=== PATIENT | female | born 1990 | race Caucasian/White ===

== ENCOUNTER 2017-08-01 16:58 | Emergency (ER) | payer SELFPAY ==
[2017-08-01] MEDS ORDERED: ACETAMINOPHEN 325 MG TABLET PO ONE (17:16)
[2017-08-01] MEDS ORDERED: CEFTRIAXONE 1 GM/D5W RTU 1 GM/50 ML RTUPB IV ONE (17:51)
[2017-08-01] MEDS ORDERED: NORMAL SALINE 1000 ML 1,000 ML IV ONE (17:56)
[2017-08-01] MEDS ORDERED: KETOROLAC TROMETHAMINE INJ/PF 30 MG/1 ML SDV IV ONE (17:56)
--- NOTE | 2017-08-01 17:59 | ER Document Report ---
ED General - General Chief Complaint: Flank Pain Stated Complaint: BACK PAIN Time Seen by Provider: 08/01/17 17:56 Mode of Arrival: Ambulatory Information source: Patient Notes: 26-year-old female history of kidney infections in the past presents with complaints of right flank pain associated with fever nausea vomiting. She notes symptoms started intermittently over the past few days worsened today. Patient has had no history of kidney stones TRAVEL OUTSIDE OF THE [place] IN LAST 30 DAYS: No - HPI Onset: Other - 3-4 day duration Onset/Duration: Intermittent Quality of pain: Burning, Cramping Severity: Mild Pain Level: 2 Associated symptoms: Fever, Nausea, Vomiting Exacerbated by: Denies Relieved by: Denies Similar symptoms previously: Yes Recently seen / treated by doctor: Yes - Related Data Allergies/Adverse Reactions: No Known Allergies Allergy (Verified 08/01/17 17:53) Past Medical History - Social History Smoking Status: Never Smoker Cigarette use (# per day): No Chew tobacco use (# tins/day): No Smoking Education Provided: No Frequency of alcohol use: None Drug Abuse: None Family History: Reviewed & Not Pertinent Neurological Medical History: Reports: Hx Migraine, Hx Seizures Renal/ Medical History: Denies: Hx Peritoneal Dialysis Psychiatric Medical History: Reports: Hx Anxiety, Hx Attention Deficit Hyperactivity Disorder, Hx Depression Surgical Hx: Negative - Immunizations Hx Diphtheria, Pertussis, Tetanus Vaccination: Yes Review of Systems - Review of Systems Notes: REVIEW OF SYSTEMS: CONSTITUTIONAL :fever EENT: Denies eye, ear, throat, or mouth pain or symptoms. Denies nasal or sinus congestion or discharge. Denies throat, tongue, or mouth swelling or difficulty swallowing. CARDIOVASCULAR: Denies chest pain. Denies palpitations or racing or irregular heart beat. Denies ankle edema. RESPIRATORY: Denies cough, cold, or chest congestion. Denies shortness of breath, difficulty breathing, or wheezing. GASTROINTESTINAL: D admits nausea vomiting flank pain GENITOURINARY: Denies difficulty urinating, painful urination, burning, frequency, blood in urine, or discharge. FEMALE GENITOURINARY: Denies vaginal bleeding, heavy or abnormal periods, irregular periods. Denies vaginal discharge or odor. MUSCULOSKELETAL: Denies back or neck pain or stiffness. Denies joint pain or swelling. SKIN: Denies rash, lesions or sores. HEMATOLOGIC : Denies easy bruising or bleeding. LYMPHATIC: Denies swollen, enlarged glands. NEUROLOGICAL: Denies confusion or altered mental status. Denies passing out or loss of consciousness. Denies dizziness or lightheadedness. Denies headache. Denies weakness or paralysis or loss of use of either side. Denies problems with gait or speech. Denies sensory loss, numbness, or tingling. Denies seizures. PSYCHIATRIC: Denies anxiety or stress. Denies depression, suicidal ideation, or homicidal ideation. ALL OTHER SYSTEMS REVIEWED AND NEGATIVE. PHYSICAL EXAMINATION: GENERAL: Well-appearing, well-nourished and in no acute distress. febrile HEAD: Atraumatic, normocephalic. EYES: Pupils equal round and reactive to light, extraocular movements intact, conjunctiva are normal. ENT: Nares patent, oropharynx clear without exudates. Moist mucous membranes. NECK: Normal range of motion, supple without lymphadenopathy LUNGS: Breath sounds clear to auscultation bilaterally and equal. No wheezes rales or rhonchi. HEART: Regular rate and rhythm without murmurs ABDOMEN: Soft, nontender, nondistended abdomen. No guarding, no rebound. No masses appreciated. right cva tenderness Female : deferred Musculoskeletal: Normal range of motion, no pitting or edema. No cyanosis. NEUROLOGICAL: Cranial nerves grossly intact. Normal speech, normal gait. Normal sensory, motor exams PSYCH: Normal mood, normal affect. SKIN: Warm, Dry, normal turgor, no rashes or lesions noted. Dictation was performed using [employer] voice recognition software Physical Exam - Vital signs Vitals: Temp Pulse Resp BP Pulse Ox 102.5 F H 106 H 16 108/67 99 08/01/17 17:05 08/01/17 17:05 08/01/17 17:05 08/01/17 17:05 08/01/17 17:05 Course - Re-evaluation Re-evalutation: 08/01/17 17:59 Patient noted to be febrile with flank pain probable pyelonephritis labwork pending 08/01/17 20:34 Patient's urinalysis is consistent with pyelonephritis, there is no elevation of white count, her CMP did hemolyze patient wishes to be discharged prior to redraw. I will treated with antibiotics she is otherwise well-appearing no distress. Her fever was rechecked and noted to be 102.3 but her heart rate had improved after IV fluids and pain control. She will be discharged home with pain medication antibiotics urine culture ordered very strict return precautions provided 08/01/17 20:34 After performing a Medical Screening Examination, I estimate there is LOW risk for ACUTE APPENDICITIS, BOWEL OBSTRUCTION, ACUTE CHOLECYSTITIS, PERFORATED DIVERTICULITIS, INCARCERATED HERNIA, PANCREATITIS, PELVIC INFLAMMATORY DISEASE, PERFORATED ULCER, ECTOPIC , or TUBO-OVARIAN ABSCESS, thus I consider the discharge disposition reasonable. Also, there is no evidence or peritonitis , sepsis, or toxicity. I have reevaluated this patient multiple times and no significant life threatening changes are noted. The patient and I have discussed the diagnosis and risks, and we agree with discharging home with close follow-up with the understanding that symptoms and presentations can change. We also discussed returning to the Emergency Department immediately if new or worsening symptoms occur. We have discussed the symptoms which are most concerning (e.g., bloody stool, fever, changing or worsening pain, vomiting) that necessitate immediate return. - Vital Signs Vital signs: Temp Pulse Resp BP Pulse Ox 102.3 F H 100 16 110/68 100 08/01/17 19:00 08/01/17 19:00 08/01/17 19:00 08/01/17 19:00 08/01/17 19:00 - Laboratory Result Diagrams: 08/01/17 18:25 08/01/17 18:25 Laboratory results interpreted by me: 08/01/17 08/01/17 18:14 18:25 MCV 78 L MCH 25.9 L Urine Protein 30 H Urine Nitrite POSITIVE H Ur Leukocyte Esterase LARGE H Discharge - Discharge Clinical Impression: Pyelonephritis Fever Qualifiers: Fever type: unspecified Qualified Code(s): R50.9 - Fever, unspecified Condition: Stable Disposition: HOME, SELF-CARE Instructions: Pyelonephritis ([facility]) Additional Instructions: Follow up with your physician tomorrow for further care or return to the ED IMMEDIATELY if symptoms worsen or new concerns occur. If you cannot afford to follow up with your primary care physician a list of low cost clinics have been provided at the end of your discharge papers as well. Prescriptions: Ciprofloxacin HCl [Cipro 500 mg Tablet] 500 mg PO BID #20 tablet Hydrocodone/Acetaminophen [[place] 5-325 mg Tablet] 1 tab PO Q6 #14 tablet
[2017-08-01 18:39] LABS: ABSOLUTE BASOPHILS # (AUTO) 0.1 10^3/uL (0.0-0.2); ABSOLUTE EOSINOPHILS # (AUTO) 0.1 10^3/uL (0.0-0.6); ABSOLUTE LYMPHOCYTES (AUTO) 1.3 10^3/uL (0.5-4.7); ABSOLUTE MONOCYTES (AUTO) 0.8 10^3/uL (0.1-1.4); ABSOLUTE NEUT (AUTO) 7.9 10^3/uL (1.7-8.2); BASOPHILS % (AUTO) 0.7 % (0-2); EOSINOPHILS % (AUTO) 0.6 % (0-6); MEAN CORPUSCULAR HEMOGLOBIN 25.9 pg (27.0-33.4); MEAN CORPUSCULAR HGB CONC 33.4 g/dL (32.0-36.0); MEAN CORPUSCULAR VOLUME 78 fl (80-97); MONOCYTES % (AUTO) 8.2 % (3-13); RED BLOOD COUNT 4.65 10^6/uL (3.72-5.28); RED CELL DISTRIBUTION WIDTH 13.6 % (11.5-14.0); SEGMENTED NEUTROPHILS % (AUTO) 77.5 % (42-78); WHITE BLOOD COUNT 10.2 10^3/uL (4.0-10.5)
[2017-08-01 18:55] LABS: APPEARANCE,URINE CLOUDY; BILIRUBIN,URINE NEGATIVE (NEGATIVE); GLUCOSE, URINE NEGATIVE (NEGATIVE); KETONES,URINE NEGATIVE (NEGATIVE); LEUKOCYTE ESTERASE,URINE LARGE (NEGATIVE); NITRITE,URINE POSITIVE (NEGATIVE); PROTEIN,URINE 30 mg/dL (NEGATIVE); URINE SPECIFIC GRAVITY 1.008; UROBILINOGEN,URINE NEGATIVE mg/dL (<2.0)
[2017-08-01 19:50] VITALS: BP 110/68
== END 2017-08-01 19:00 | disposition home or self-care (01) ==
LOC: ER 16:58
DX: N12 Tubulo-interstitial nephritis, not specified as acute or chronic (principal); R50.9 Fever, unspecified; R10.9 Unspecified abdominal pain; R11.2 Nausea with vomiting, unspecified
CPT/HCPCS: 99284; 96375; 96365; 36415; 87040; 87086; 85025; 81025; 87088; 81001; 87186; J1885; J7030; J0696

== ENCOUNTER 2018-02-05 21:13 | Emergency (ER) | payer SELFPAY ==
[2018-02-05 21:22] VITALS: BP 121/78
[2018-02-05] MEDS ORDERED: NAPROXEN 250 MG TABLET PO ONE (23:02)
[2018-02-05] MEDS ORDERED: DIAZEPAM INJ 10 MG/2 ML DISP.SYRIN IM ONE (23:02)
--- NOTE | 2018-02-06 00:07 | ER Document Report ---
ED General - General Chief Complaint: Back Pain Stated Complaint: RIGHT HIP AND BACK PAIN Time Seen by Provider: 02/05/18 22:56 TRAVEL OUTSIDE OF THE [place] IN LAST 30 DAYS: No - Related Data Allergies/Adverse Reactions: No Known Allergies Allergy (Verified 08/01/17 17:53) Past Medical History - Social History Smoking Status: Current Every Day Smoker Chew tobacco use (# tins/day): No Frequency of alcohol use: None Drug Abuse: None Family History: Reviewed & Not Pertinent Patient has suicidal ideation: No Patient has homicidal ideation: No Neurological Medical History: Reports: Hx Migraine, Hx Seizures Renal/ Medical History: Denies: Hx Peritoneal Dialysis Psychiatric Medical History: Reports: Hx Anxiety, Hx Attention Deficit Hyperactivity Disorder, Hx Depression - Immunizations Hx Diphtheria, Pertussis, Tetanus Vaccination: Yes Physical Exam - Vital signs Vitals: Temp Pulse Resp BP Pulse Ox 98.4 F 118 H 18 121/78 96 02/05/18 21:20 02/05/18 21:20 02/05/18 21:20 02/05/18 21:20 02/05/18 21:20 Course - Re-evaluation Re-evalutation: 02/06/18 00:07 She is up ambulating doing better. Patient was asking what her discharge medications would be. I did go over the Motrin. I also told her I wrote her for a low dose Flexeril and she is to break the tablet in half, only take half at a time. I told her to be careful if she is watching her young children that she should not be taking this medication. I told her to apply take 2-3 days for this to resolve completely. 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 I did encourage her to call friends neighbors and whoever else she can to help out at this time. - Vital Signs Vital signs: Temp Pulse Resp BP Pulse Ox 98.4 F 118 H 18 121/78 96 02/05/18 21:20 02/05/18 21:20 02/05/18 21:20 02/05/18 21:20 02/05/18 21:20 Discharge - Discharge Clinical Impression: Sciatica Condition: Stable Disposition: HOME, SELF-CARE Instructions: Low Back Pain ([facility]), Muscle Strain ([facility]) Additional Instructions: Follow up with your physician tomorrow for further care or return to the ED IMMEDIATELY if symptoms worsen or new concerns occur. If you cannot afford to follow up with your primary care physician a list of low cost clinics have been provided at the end of your discharge papers as well. Motrin 600 mg by mouth 8 hours with food for the next 3 days. Prescriptions: Cyclobenzaprine HCl [Flexeril 5 mg Tablet] 5 mg PO TID 4 Days #12 tablet
== END 2018-02-06 00:11 | disposition home or self-care (01) ==
LOC: ER 21:13
DX: M54.30 Sciatica, unspecified side (principal); M54.9 Dorsalgia, unspecified; M25.551 Pain in right hip; F17.200 Nicotine dependence, unspecified, uncomplicated
CPT/HCPCS: 99283; 96372; J3360

== ENCOUNTER 2018-06-14 11:41 | Emergency (ER) | payer SELFPAY ==
[2018-06-14] MEDS ORDERED: LIDOCAINE 2% VISCOUS SOLN 20 ML UDCUP PO ONE (12:51)
[2018-06-14] MEDS ORDERED: PENICILLIN V POTASSIUM 500 MG TABLET PO ONE (12:51)
[2018-06-14] MEDS ORDERED: IBUPROFEN 600 MG TABLET PO ONE (12:51)
--- NOTE | 2018-06-14 13:29 | ER Document Report ---
ED ENT - General Chief Complaint: Facial Swelling Stated Complaint: SINUS PAIN Time Seen by Provider: 06/14/18 12:46 Mode of Arrival: Ambulatory Information source: Patient Notes: 27-year-old female presents to ED for headache times a week. She states she has had some swelling to the her gums and face. She thought she might of had a sinus infection and her fever has gotten up to 102.5 yesterday no fevers today. She states she has not been to a doctor. She does have an abscess to her upper gums. Patient is alert and oriented speaking in full sentences respirations regular and unlabored and walks with a even steady gait. TRAVEL OUTSIDE OF THE [place] IN LAST 30 DAYS: No - HPI Patient complains to provider of: Dental problem Onset: Last week Onset/Duration: Gradual, Worse Quality of pain: Stabbing Severity: Moderate Pain Level: 4 Location of pain: Face, Tooth Associated symptoms: Dental pain, Dental caries, Fever Similar symptoms previously: Yes Recently seen / treated by doctor: No - Related Data Allergies/Adverse Reactions: No Known Allergies Allergy (Verified 06/14/18 11:42) Past Medical History - General Information source: Patient - Social History Smoking Status: Former Smoker Cigarette use (# per day): No Chew tobacco use (# tins/day): No Smoking Education Provided: No Frequency of alcohol use: None Drug Abuse: None Lives with: Family Family History: Reviewed & Not Pertinent Patient has suicidal ideation: No Patient has homicidal ideation: No - Past Medical History Cardiac Medical History: Reports: None Pulmonary Medical History: Reports: None Neurological Medical History: Reports: Hx Migraine, Hx Seizures Endocrine Medical History: Reports: None Renal/ Medical History: Reports: None Malignancy Medical History: Reports: None GI Medical History: Reports: None Musculoskeletal Medical History: Reports None Skin Medical History: Reports None Psychiatric Medical History: Reports: Hx Anxiety, Hx Attention Deficit Hyperactivity Disorder, Hx Depression Traumatic Medical History: Reports: None Infectious Medical History: Reports: None Surgical Hx: Negative Past Surgical History: Reports: None - Immunizations Immunizations up to date: Yes Hx Diphtheria, Pertussis, Tetanus Vaccination: Yes Review of Systems - Review of Systems Constitutional: No symptoms reported EENT: Mouth pain, Mouth swelling, Dental problem Cardiovascular: No symptoms reported Respiratory: No symptoms reported Gastrointestinal: No symptoms reported Genitourinary: No symptoms reported Female Genitourinary: No symptoms reported Musculoskeletal: No symptoms reported Skin: No symptoms reported Hematologic/Lymphatic: No symptoms reported Neurological/Psychological: No symptoms reported -: Yes All other systems reviewed and negative Physical Exam - Vital signs Vitals: Temp Pulse Resp BP Pulse Ox 97.9 F 82 14 113/73 100 06/14/18 11:50 06/14/18 11:50 06/14/18 11:50 06/14/18 11:50 06/14/18 11:50 Interpretation: Normal - General General appearance: Appears well, Alert - HEENT Head: Normocephalic, Atraumatic Eyes: Normal Pupils: PERRL Ears: Normal External canal: Normal Tympanic membrane: Normal Sinus: Normal Nasal: Normal Mouth/Lips: Caries Teeth diagram: 1 - Abscess with dental pain minimal facial swelling Pharynx: Normal Neck: Anterior cervical chain - Respiratory Respiratory status: No respiratory distress Chest status: Nontender Breath sounds: Normal Chest palpation: Normal - Cardiovascular Rhythm: Regular Heart sounds: Normal auscultation Murmur: No - Abdominal Inspection: Normal Distension: No distension Bowel sounds: Normal Tenderness: Nontender Organomegaly: No organomegaly - Back Back: Normal, Nontender - Extremities General upper extremity: Normal inspection, Nontender, Normal color, Normal ROM , Normal temperature General lower extremity: Normal inspection, Nontender, Normal color, Normal ROM , Normal temperature, Normal weight bearing. No: Ismael's sign - Neurological Neuro grossly intact: Yes Cognition: Normal Orientation: AAOx4 Devens Coma Scale Eye Opening: Spontaneous Dima Coma Scale Verbal: Oriented Dima Coma Scale Motor: Obeys Commands Devens Coma Scale Total: 15 Speech: Normal Motor strength normal: LUE, RUE, LLE, RLE Sensory: Normal - Psychological Associated symptoms: Normal affect, Normal mood - Skin Skin Temperature: Warm Skin Moisture: Dry Skin Color: Normal Course - Re-evaluation Re-evalutation: 06/14/18 22:49 Presentation is most consistent with likely an infected tooth. Airway is patent. Vitals within normal limits. Patient is able swallow without any difficulty. There is no significant facial swelling. No evidence of Santy angina, apical abscess, or airway obstruction. Patient will be started on antibiotics. I've instructed to follow-up with dentistry as earliest ability for definitive management. At this time will discharge with return precautions and follow-up recommendations. Verbal discharge instructions given a the bedside and opportunity for questions given. Medication warnings reviewed. Patient is in agreement with this plan and has verbalized understanding of return precautions and the need for primary care follow-up in the next 24-72 hours. - Vital Signs Vital signs: Temp Pulse Resp BP Pulse Ox 98.2 F 70 18 113/74 100 06/14/18 13:29 06/14/18 13:29 06/14/18 13:29 06/14/18 13:29 06/14/18 13:29 Discharge - Discharge Clinical Impression: Pain due to dental caries, Dental abscess Condition: Stable Disposition: HOME, SELF-CARE Additional Instructions: TOOTHACHE: Your pain is due to dental decay. The tooth must be repaired in order for you to feel better. You will, therefore, be referred to a dentist. We do not have dentists on the staff at [facility]. Severe swelling or drainage around a tooth usually means a dental abscess. This also requires evaluation and treatment by the dentist, but antibiotics may be prescribed while awaiting dental treatment. You should be rechecked immediately if you develop major swelling of the face, increasing pain, a lump in the jaw or gums, headache, difficulty swallowing, or fever. PENICILLIN V K: You have been given a prescription for Penicillin VK. Your physician has determined that this is the best antibiotic for your condition. Pen VK can be taken with meals, however more of the antibiotic gets into the bloodstream if it's taken on an empty stomach. Penicillin usually has no side effects. However, allergy to penicillins is common. If you have had an allergic reaction to any drug of the penicillin family, you should never take any other penicillin. Notify your doctor at once if you develop hives, itching, swelling, faintness, or shortness of breath. Ibuprofen Ibuprofen is an excellent, safe drug for pain control. In addition, it has potent antiinflammatory effects which are beneficial, especially in the treatment of injuries, arthritis, or tendonitis. It's best to take ibuprofen with food. Persons with ulcer disease or allergy to aspirin should notify their physician of this before taking ibuprofen. Take the medication exactly as prescribed. Don't take additional doses unless instructed to do so by your doctor. If you develop wheezing, shortness of breath, hives, faintness, stomach pain, vomiting, or dark black stools, return for re-evaluation at once. Salt and soda water gargles 1 quart of water 1 tablespoon of salt 1 teaspoon of baking soda Mixed 3 ingredients together and boil for 1 minute Placed in a covered quart jar Use 1/2 ounce of cold solution to gargle 3 times a day FOLLOW-UP CARE: You have been referred for follow-up care to the dentists listed below. Call the dentists office for an appointment as you were instructed or within the next two days. If you experience worsening or a significant change in your symptoms, notify the physician immediately or return to the Emergency Department at any time for re-evaluation. [facility] [address] [place], [place] [phone] [facility] [address] [place] [address] [facility] [address] [facility] [address] [facility] [address] [email or web address] [address] [place] [address] Thursday- 8:00am to 5:00 pm Will see patients from other city hospital. Charges based on income and family size and accepts Medicare, Medicaid, and Insurances Will pull molars [facility] [address] Hours of Operation 8:00 am - 4:30 pm weekdays The following dental offices accept Medicaid: [facility] Dr. Sot[address] Dr. Gallegos Dr. Hazel Dr. Kirby Papi Rolon Lutsavage, and Joey oral surgery Dr. Phillips ([place]) Dr. Rogers ([place]) [facility] Drs. Ambrocio ([place]) Dr. Villanueva ([place]) [facility] Dr. Carlin ([place]) Drs. Mathew and ([place]) Medicaid Care Line Prescriptions: Ibuprofen 600 mg PO Q6HP PRN #20 tablet PRN Reason: Penicillin V Potassium [Penicillin Vk 500 mg Tablet] 500 mg PO BID #20 tablet
[2018-06-14 13:30] VITALS: BP 113/74
== END 2018-06-14 14:00 | disposition home or self-care (01) ==
LOC: ER 11:41
DX: K02.9 Dental caries, unspecified (principal); K04.7 Periapical abscess without sinus; R51 Headache; R50.9 Fever, unspecified; Z87.891 Personal history of nicotine dependence
CPT/HCPCS: 99283; J3490

== ENCOUNTER 2018-12-02 12:42 | Emergency (ER) | payer SELFPAY ==
[2018-12-02] MEDS ORDERED: LIDOCAINE 2% VISCOUS SOLN 20 ML UDCUP PO ONE (14:57)
--- NOTE | 2018-12-02 15:03 | ER Document Report ---
ED Oral Problem - General Chief Complaint: Mouth Problem Stated Complaint: MOUTH PAIN/SORES,HANDS SWELLING Time Seen by Provider: 12/02/18 13:24 Mode of Arrival: Ambulatory Information source: Patient Notes: 27-year-old female presented to ED for complaint of sores to her mouth left nostril and swollen hands. She states this is been going on for 3 days. She states she went to a local doctor and they gave her antibiotics for this pain and swelling to her hands. She states this did not do any good at all. She states she is continued to have the pain in her mouth and her hands. I consu lted Dr. Stephen for her symptoms. He came and examined the patient and stated that she looked like she had mngx-agqb-mos-mouth disease. Will order patient Magic mouthwash for home and give her some viscous lidocaine in the emergency room. Patient to follow-up with a primary doctor. I have given her a list of all the local primary doctors. TRAVEL OUTSIDE OF THE [place] IN LAST 30 DAYS: No - HPI Patient complains to provider of: Other - Swelling to both hands, sores to both hands, aphthous ulcers with rash to face. Onset: Gradual Quality of pain: Burning, Sharp Severity: Severe Pain Level: 5 Associated symptoms: Other - Painful ulcers to mouth left nostril, rash to face, painful sores to hands with swelling. 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 Denies: Hx Peritoneal Dialysis Malignancy Medical History: Reports: None GI Medical History: Reports: None Musculoskeletal Medical History: Reports None Skin Medical History: Reports None Psychiatric Medical History: Reports: Hx Anxiety, Hx Attention Deficit Hyperactivity Disorder, Hx Depression Traumatic Medical History: Reports: None Infectious Medical History: Reports: None Surgical Hx: Negative Past Surgical History: Reports: None - Immunizations Immunizations up to date: Yes Hx Diphtheria, Pertussis, Tetanus Vaccination: Yes Review of Systems - Review of Systems Constitutional: No symptoms reported EENT: Nose pain, Mouth pain, Other - Rash to face Cardiovascular: No symptoms reported Respiratory: No symptoms reported Gastrointestinal: No symptoms reported Genitourinary: No symptoms reported Female Genitourinary: No symptoms reported Musculoskeletal: No symptoms reported Skin: Rash - Rash to hands and face, Other - Swelling to hands Hematologic/Lymphatic: No symptoms reported Neurological/Psychological: No symptoms reported -: Yes All other systems reviewed and negative Physical Exam - Vital signs Vitals: Temp Pulse Resp BP Pulse Ox 99.0 F 81 18 126/88 H 100 12/02/18 12:46 12/02/18 12:46 12/02/18 12:46 12/02/18 12:46 12/02/18 12:46 Interpretation: Normal - General General appearance: Appears well, Alert - HEENT Head: Normocephalic, Atraumatic Eyes: Normal Pupils: PERRL Ears: Normal External canal: Normal Tympanic membrane: Normal Nasal: Other - Also to left nostril Mouth/Lips: Lesions - aphthous ulcers to oral mucosa Pharynx: Erythema Neck: Normal - Respiratory Respiratory status: No respiratory distress Chest status: Nontender Breath sounds: Normal Chest palpation: Normal - Cardiovascular Rhythm: Regular Heart sounds: Normal auscultation Murmur: No - Abdominal Inspection: Normal Distension: No distension Bowel sounds: Normal Tenderness: Nontender Organomegaly: No organomegaly - Back Back: Normal, Nontender - Extremities General upper extremity: Normal inspection, Nontender, Normal color, Normal ROM, Normal temperature General lower extremity: Normal inspection, Nontender, Normal color, Normal ROM, Normal temperature, Normal weight bearing. No: Ismael's sign - Neurological Neuro grossly intact: Yes Cognition: Normal Orientation: AAOx4 Dima Coma Scale Eye Opening: Spontaneous [place] Coma Scale Verbal: Oriented [place] Coma Scale Motor: Obeys Commands [place] Coma Scale Total: 15 Speech: Normal Motor strength normal: LUE, RUE, LLE, RLE Sensory: Normal - Psychological Associated symptoms: Normal affect, Normal mood - Skin Skin Temperature: Warm Skin Moisture: Dry Skin Color: Normal Location of irregularity: Face - Rash to face, Other - Swelling and rash to hands Irregularity with: Swelling - Hands Course - Re-evaluation Re-evalutation: 12/02/18 21:[address] Stephen who came and looked at the mouth and hands. He stated he thought it was jqoh-vzmx-wom-mouth disease. He recommended treating the patient with the Magic mouthwash as I had previously discussed with the patient and have her follow-up with her primary doctor. Prescription was written for the Magic mouthwash and viscous lidocaine in the emergency room for her pain and patient was discharged home. Patient verbalized understanding and agreement wi th treatment plan. - Vital Signs Vital signs: Temp Pulse Resp BP Pulse Ox 98.1 F 85 16 127/77 H 99 12/02/18 15:09 12/02/18 15:09 12/02/18 15:09 12/02/18 15:09 12/02/18 15:09 Discharge - Discharge Clinical Impression: Aphthous ulcer of pharynx or hypopharynx, Swelling of both hands Condition: Stable Disposition: HOME, SELF-CARE Instructions: Family Physicians / Practices Additional Instructions: Hand, Foot and Mouth Disease Hand, Foot, and Mouth Disease (HFM) is caused by a virus. Symptoms include small ulcers in the mouth and spots or blisters on the palms, feet, or buttocks. A low grade fever for 2-3 days is common. The skin and mouth sores may last for 7-10 days. Hand, Foot, and Mouth Disease is contagious until one day after the fever is gone. Most of the time, symptoms are mild. If fluids are avoided due to painful mouth sores, dehydration may result. You can use oral anesthetics (Oragel, Anbesol) or liquid Benadryl to numb mouth sores. Use acetaminophen for pain and fever. Use cool liquids and foods that are easily chewed. Avoid citrus juices and spicy foods. To prevent spread of the virus, use good handwashing. Shared toys should be cleaned with disinfectant. Clean the toilets, sinks, and counter surfaces in bathrooms. Launder clothing in hot water. Return if there is a significant change for the worse, including high fever, severe pain, or dehydration. Signs of dehydration in a child can include progressive weakness, apathy, irritability, or no diaper wetting for over eight hours. Ibuprofen Ibuprofen is an excellent, safe drug for pain control. In addition, it has potent antiinflammatory effects which are beneficial, especially in the treatment of injuries, arthritis, or tendonitis. It's best to take ibuprofen with food. Persons with ulcer disease or allergy to aspirin should notify their physician of this before taking ibuprofen. Take the medication exactly as prescribed. Don't take additional doses unless instructed to do so by your doctor. If you develop wheezing, shortness of breath, hives, faintness, stomach pain, vomiting, or dark black stools, return for re-evaluation at once. FOLLOW-UP CARE: If you have been referred to a physician for follow-up care, call the physicians office for an appointment as you were instructed or within the next two days. If you experience worsening or a significant change in your symptoms, notify the physician immediately or return to the Emergency Department at any time for re-evaluation. Prescriptions: Nystatin/Dexameth/Diphen [Magic Mouthwash (O[facility] Formula) Susp] 5 ml PO QID #120 ml Forms: Elevated Blood Pressure
[2018-12-02 15:13] VITALS: BP 127/77
== END 2018-12-02 15:13 | disposition home or self-care (01) ==
LOC: ER 12:42
DX: K12.0 Recurrent oral aphthae (principal); K13.79 Other lesions of oral mucosa; M79.89 Other specified soft tissue disorders
CPT/HCPCS: 99283; J3490

== ENCOUNTER 2018-12-27 11:34 | Emergency (ER) | payer SELFPAY ==
--- NOTE | 2018-12-27 14:29 | ER Document Report ---
ED Medical Screen (RME) - General Chief Complaint: Pain All Over Stated Complaint: BODY PAIN Time Seen by Provider: 12/27/18 14:25 Notes: Patient is a 28-year-old female presents to the emergency department with generalized body aches and pain. Patient is intermittently crying during HPI and exam. Patient states she has a sore throat and she feels "extra tired." Patient states she does have a history of lupus but states nobody will take her lupus seriously. Patient does appear very anxious with rambled intermittent speech and flight of ideas. Past medical history: Lupus, diabetes Medications: Adderall Allergies: None Last menstrual period 12/12/2018 ENT: Oral mucosa moist, tongue midline. Pharynx erythematous no palatal petechiae or exudate noted NECK: Full range of motion. Supple. Trachea midline. SKIN: Warm, dry, normal turgor. No rashes or lesions noted. I have greeted and performed a rapid initial assessment of this patient. A comprehensive ED assessment and evaluation of the patient, analysis of test results and completion of the medical decision making process will be conducted by additional ED providers. TRAVEL OUTSIDE OF THE [place] IN LAST 30 DAYS: No - Related Data Allergies/Adverse Reactions: No Known Allergies Allergy (Verified 12/27/18 11:36) Past Medical History Neurological Medical History: Reports: Hx Migraine, Hx Seizures Renal/ Medical History: Denies: Hx Peritoneal Dialysis Psychiatric Medical History: Reports: Hx Anxiety, Hx Attention Deficit Hyperactivity Disorder, Hx Depression - Immunizations Immunizations up to date: Yes Hx Diphtheria, Pertussis, Tetanus Vaccination: Yes Physical Exam - Vital signs Vitals: Temp Pulse Resp BP Pulse Ox 98.2 F 85 16 131/80 H 100 12/27/18 11:50 12/27/18 11:50 12/27/18 11:50 12/27/18 11:50 12/27/18 11:50 Course - Vital Signs Vital signs: Temp Pulse Resp BP Pulse Ox 98.2 F 85 16 131/80 H 100 12/27/18 11:50 12/27/18 11:50 12/27/18 11:50 12/27/18 11:50 12/27/18 11:50
[2018-12-27 15:45] LABS: APPEARANCE,URINE CLOUDY; BILIRUBIN,URINE NEGATIVE (NEGATIVE); COLOR,URINE AMBER; GLUCOSE, URINE NEGATIVE (NEGATIVE); KETONES,URINE NEGATIVE (NEGATIVE); LEUKOCYTE ESTERASE,URINE SMALL (NEGATIVE); NITRITE,URINE NEGATIVE (NEGATIVE); PROTEIN,URINE NEGATIVE (NEGATIVE); URINE SPECIFIC GRAVITY 1.018
[2018-12-27 15:59] LABS: URINE BARBITURATES SCREEN NEGATIVE; URINE BENZODIAZEPINES SCREEN NEGATIVE; URINE COCAINE SCREEN UNCONFIRMED POSITIVE; URINE MARIJUANA (THC) SCREEN NEGATIVE; URINE METHADONE SCREEN NEGATIVE; URINE PHENCYCLIDINE SCREEN NEGATIVE
[2018-12-27 17:36] LABS: ABSOLUTE BASOPHILS # (AUTO) 0.1 10^3/uL (0.0-0.2); ABSOLUTE EOSINOPHILS # (AUTO) 0.1 10^3/uL (0.0-0.6); ABSOLUTE LYMPHOCYTES (AUTO) 2.7 10^3/uL (0.5-4.7); ABSOLUTE MONOCYTES (AUTO) 1.7 10^3/uL (0.1-1.4); ABSOLUTE NEUT (AUTO) 10.9 10^3/uL (1.7-8.2); BASOPHILS % (AUTO) 0.9 % (0-2); EOSINOPHILS % (AUTO) 0.4 % (0-6); HEMATOCRIT 35.1 % (36.0-47.0); HEMOGLOBIN 11.8 g/dL (12.0-15.5); LYMPHOCYTES % (AUTO) 17.5 % (13-45); MEAN CORPUSCULAR HEMOGLOBIN 26.4 pg (27.0-33.4); MEAN CORPUSCULAR HGB CONC 33.6 g/dL (32.0-36.0); MEAN CORPUSCULAR VOLUME 79 fl (80-97); PLATELET COUNT 284 10^3/uL (150-450); RED BLOOD COUNT 4.46 10^6/uL (3.72-5.28); RED CELL DISTRIBUTION WIDTH 15.6 % (11.5-14.0); SEGMENTED NEUTROPHILS % (AUTO) 70.2 % (42-78); TOTAL CELLS COUNTED % (AUTO) 100 %; WHITE BLOOD COUNT 15.5 10^3/uL (4.0-10.5)
[2018-12-27 17:52] LABS: ALANINE AMINOTRANSFERASE 36 U/L (9-52); ALBUMIN 4.9 g/dL (3.5-5.0); ALKALINE PHOSPHATASE 92 U/L (38-126); ANION GAP 12 (5-19); ASPARTATE AMINO TRANSFERASE 32 U/L (14-36); BILIRUBIN,DIRECT 0.2 mg/dL (0.0-0.4); BILIRUBIN,TOTAL 0.9 mg/dL (0.2-1.3); BLOOD UREA NITROGEN 18 mg/dL (7-20); CARBON DIOXIDE 20 mmol/L (22-30); CHLORIDE 105 mmol/L (98-107); GLUCOSE 84 mg/dL (75-110); POTASSIUM 4.3 mmol/L (3.6-5.0); SODIUM 137.2 mmol/L (137-145); TOTAL PROTEIN 8.1 g/dL (6.3-8.2)
[2018-12-27] MEDS ORDERED: ACETAMINOPHEN 325 MG TABLET PO ONE (18:58)
--- NOTE | 2018-12-27 20:19 | RADIOLOGY REPORT (SQ) ---
XR CHEST 2 VIEWS HISTORY: Cough. COMPARISON: None. FINDINGS: The heart size is normal. The lungs are clear. No pleural effusions or pneumothorax is seen. No acute bony findings. IMPRESSION: No evidence of acute cardiopulmonary disease.
--- NOTE | 2018-12-27 20:41 | ER Document Report ---
ED General - General Chief Complaint: Pain All Over Stated Complaint: BODY PAIN Time Seen by Provider: 12/27/18 14:25 Mode of Arrival: Ambulatory Information source: Patient TRAVEL OUTSIDE OF THE [place] IN LAST 30 DAYS: No - HPI Onset: Other - 28-year-old female presents for evaluation because some shortness of breath and generalized fatigue in the setting of a history of lupus for which she is not currently pursuing any treatment. She denies any fevers or chills, lightheadedness, diaphoresis abdominal pain constipation dysuria. She denies any other rashes. She does note that she has experienced some photosensitivity related to some tanning bed activity she underwent. She has had episodes like this in the past which she thinks have been attributed primarily to her underlying diagnosis of lupus. - Related Data Allergies/Adverse Reactions: No Known Allergies Allergy (Verified 12/27/18 11:36) Past Medical History - General Information source: Patient - Social History Smoking Status: Former Smoker Chew tobacco use (# tins/day): No Drug Abuse: None Family History: Reviewed & Not Pertinent Patient has suicidal ideation: No Patient has homicidal ideation: No Neurological Medical History: Reports: Hx Migraine, Hx Seizures Endocrine Medical History: Reports: Hx Diabetes Mellitus Type 1 Renal/ Medical History: Denies: Hx Peritoneal Dialysis Psychiatric Medical History: Reports: Hx Anxiety, Hx Attention Deficit Hyperactivity Disorder, Hx Depression - Immunizations Immunizations up to date: Yes Hx Diphtheria, Pertussis, Tetanus Vaccination: Yes Review of Systems - Review of Systems -: Yes All other systems reviewed and negative Physical Exam - Vital signs Vitals: Temp Pulse Resp BP Pulse Ox 98.2 F 85 16 131/80 H 100 12/27/18 11:50 12/27/18 11:50 12/27/18 11:50 12/27/18 11:50 12/27/18 11:50 Interpretation: Normal - General General appearance: Appears well, Alert - HEENT Head: Normocephalic, Atraumatic Eyes: Normal Pupils: PERRL - Respiratory Respiratory status: No respiratory distress Chest status: Nontender Breath sounds: Normal Chest palpation: Normal - Cardiovascular Rhythm: Regular Heart sounds: Normal auscultation Murmur: No - Abdominal Inspection: Normal Distension: No distension Bowel sounds: Normal Tenderness: Nontender Organomegaly: No organomegaly - Back Back: Normal, Nontender - Extremities General upper extremity: Normal inspection, Nontender, Normal color, Normal ROM, Normal temperature General lower extremity: Normal inspection, Nontender, Normal color, Normal ROM, Normal temperature, Normal weight bearing. No: Ismael's sign - Neurological Neuro grossly intact: Yes Cognition: Normal Orientation: AAOx4 Dima Coma Scale Eye Opening: Spontaneous D[place] Coma Scale Verbal: Oriented Dima Coma Scale Motor: Obeys Commands [place] Coma Scale Total: 15 Speech: Normal Motor strength normal: LUE, RUE, LLE, RLE Sensory: Normal - Psychological Associated symptoms: Normal affect, Normal mood - Skin Skin Temperature: Warm Skin Moisture: Dry Skin Color: Normal Course - Re-evaluation Re-evalutation: This is a very well-appearing 28-year-old female that presents for evaluation of persistent shortness of breath with some cough and wheeze. She has had episodes like this in the past which have been attributed to her lupus after which she responded to steroids but does not like the side effects thereof. She has not seen a doctor and sometimes a result of difficulty obtaining care. No fevers no chills. Through triage she had labs ordered demonstrates a leukocytosis no obvious other organ injury. Chest x-ray is still posteriorly obvious pneumonia. We will plan for administration of Decadron with a prescription for steroids in case this patient does not have any improvement in her symptoms in the brief future. Current plan is for this patient undergo discharge with return precautions and expectant management encouraged follow-up with a board stacker. - Vital Signs Vital signs: Temp Pulse Resp BP Pulse Ox 98.2 F 85 16 131/80 H 100 12/27/18 11:50 12/27/18 11:50 12/27/18 11:50 12/27/18 11:50 12/27/18 11:50 - Laboratory Result Diagrams: 12/27/18 17:24 12/27/18 17:24 Laboratory results interpreted by me: 12/27/18 12/27/18 12/27/18 15:06 17:24 17:24 WBC 15.5 H Hgb 11.8 L Hct 35.1 L MCV 79 L MCH 26.4 L RDW 15.6 H Absolute Neutrophils 10.9 H Absolute Monocytes 1.7 H Carbon Dioxide 20 L Urine Urobilinogen 4.0 H Ur Leukocyte Esterase SMALL H Discharge - Discharge Clinical Impression: Short of breath on exertion Fatigue Qualifiers: Fatigue type: unspecified Qualified Code(s): R53.83 - Other fatigue URI (upper respiratory infection) Qualifiers: URI type: unspecified URI Qualified Code(s): J06.9 - Acute upper respiratory infection, unspecified Condition: Good Disposition: HOME, SELF-CARE Instructions: Steroid Medication, Upper Respiratory Illness ([facility]), Viral Syndrome ([facility]) Additional Instructions: You were seen today in the emergency department for your fatigue and shortness of breath. You had an evaluation including a physical exam, and x-ray, blood tests. I think that your possibly experiencing a flareup of your lupus, possibly experiencing an upper respiratory tract infection, or may be having some developing fatigue syndrome. You were given a dose of a steroid medication in the emergency department which will last 3 days, if you continue to have issues and fatigue he will be given a steroid to take daily for the next 2 weeks to try and help with your symptoms. Is going to be important that you follow-up with a primary physician regarding these symptoms as they may be able to help with your fatigue and syndrome more than we are. Prescriptions: Methylprednisolone [Medrol Dosepack (4 mg/Tab) 21 Tab/Dosepak] 21 tab PO DAILY #1 dspk
[2018-12-27] MEDS ORDERED: DEXAMETHASONE 4 MG TABLET PO ONE (20:56)
[2018-12-28 00:43] VITALS: BP 117/73
== END 2018-12-27 21:55 | disposition home or self-care (01) ==
LOC: ER 11:34
DX: J06.9 Acute upper respiratory infection, unspecified (principal); R06.02 Shortness of breath; R53.83 Other fatigue; R05 Cough; R06.2 Wheezing; E10.9 Type 1 diabetes mellitus without complications; Z87.891 Personal history of nicotine dependence
CPT/HCPCS: 36415; 71046; 80053; 80307; 81001; 81025; 84443; 85025; 87070; 87077; 87880; 99283

== ENCOUNTER 2019-11-18 23:03 | Emergency (ER) | payer SELFPAY ==
[2019-11-18] MEDS ORDERED: LIDOCAINE 1% INJ-PF (10 MG/ML) 30 ML SDV INJ ONE (23:37)
[2019-11-18] MEDS ORDERED: HYDROCODONE/ACETAMINOPHEN 5-325 MG TABLET PO ONE (23:37)
--- NOTE | 2019-11-18 23:39 | ER Document Report ---
ED Medical Screen (RME) - General Chief Complaint: Arm Pain Stated Complaint: SORE UNDER ARMPIT Time Seen by Provider: 11/18/19 23:20 TRAVEL OUTSIDE OF THE [place] IN LAST 30 DAYS: No - HPI Notes: 11/18/19 23:37 28-year-old female with history of lupus to the emergency department with complaints of a "painful lump" under her right arm. This is located within her armpit. She states it started yesterday and has gotten significantly worse. She states that she also had one on her abdomen but that drained and is seeming to get better. She denies any fevers or chills. She did not recently changed deodorants or any other toiletries products. Performed a brief medical screening exam on patient and determined she will need further evaluation by main side provider. She has a right axillary abscess that will require an I&D. Will place order for pain medicine and for I&D kit. - Related Data Allergies/Adverse Reactions: No Known Allergies Allergy (Verified 12/27/18 11:36) Past Medical History Neurological Medical History: Reports: Hx Migraine, Hx Seizures Endocrine Medical History: Reports: Hx Diabetes Mellitus Type 1 Renal/ Medical History: Denies: Hx Peritoneal Dialysis Psychiatric Medical History: Reports: Hx Anxiety, Hx Attention Deficit Hyperactivity Disorder, Hx Depression - Immunizations Immunizations up to date: Yes Hx Diphtheria, Pertussis, Tetanus Vaccination: Yes Physical Exam - Vital signs Vitals: Temp Pulse Resp BP Pulse Ox 97.9 F 87 16 119/71 99 11/18/19 23:25 11/18/19 23:25 11/18/19 23:25 11/18/19 23:25 11/18/19 23:25 Course - Vital Signs Vital signs: Temp Pulse Resp BP Pulse Ox 97.9 F 87 16 119/71 99 11/18/19 23:25 11/18/19 23:25 11/18/19 23:25 11/18/19 23:25 11/18/19 23:25
[2019-11-19] MEDS ORDERED: HYDROCODONE/ACETAMINOPHEN 5-325 MG (6 TAB/ER DISP) PO PRN (03:10)
[2019-11-19] MEDS ORDERED: SULFAMETHOXAZOLE/TRIMETHOPRIM 800-160 MG TABLET PO ONE (03:10)
--- NOTE | 2019-11-19 03:13 | ER Document Report ---
HPI - HPI Time Seen by Provider: 11/18/19 23:20 Pain Level: 4 Context: Patient is a 28-year-old female that comes to the emergency department for chief complaint of an abscess on her right axillary area. She states this started about 2 days ago but became much worse over the day. She denies fever/chills, nausea/vomiting. She states she had another one on her lower abdomen but she poked it and it resolved over the past couple of days. She denies history of the same. She denies history of IV drug abuse. She does have a history of diet-controlled diabetes reportedly. - REPRODUCTIVE Reproductive: DENIES: : Past Medical History - General Information source: Patient - Social History Smoking Status: Current Every Day Smoker Frequency of alcohol use: None Drug Abuse: None Lives with: Family Family History: Reviewed & Not Pertinent Patient has suicidal ideation: No Patient has homicidal ideation: No Neurological Medical History: Reports: Hx Migraine, Hx Seizures Endocrine Medical History: Reports: Hx Diabetes Mellitus Type 1 Renal/ Medical History: Denies: Hx Peritoneal Dialysis Psychiatric Medical History: Reports: Hx Anxiety, Hx Attention Deficit Hyperactivity Disorder, Hx Depression - Immunizations Immunizations up to date: Yes Hx Diphtheria, Pertussis, Tetanus Vaccination: Yes Vertical Provider Document - CONSTITUTIONAL General Appearance: WD/WN, No Apparent Distress - INFECTION CONTROL TRAVEL OUTSIDE OF THE [place] IN LAST 30 DAYS: No - HEENT HEENT: Atraumatic, Normocephalic - NECK Neck: Normal Inspection - RESPIRATORY Respiratory: Breath Sounds Normal, No Respiratory Distress - CARDIOVASCULAR Cardiovascular: Regular Rate, Regular Rhythm - GI/ABDOMEN Gastrointestinal: Abdomen Soft, Abdomen Non-Tender - BACK Back: Normal Inspection - MUSCULOSKELETAL/EXTREMETIES Musculoskeletal/Extremeties: MAEW, FROM, Non-Tender - NEURO Level of Consciousness: Awake, Alert, Appropriate - DERM Integumentary: Warm, Dry, No Rash, Abscess - There is a swollen, fluctuant, indurated abscess in the right axilla in the center without noted surrounding erythema or concerning findings otherwise. Course - Re-evaluation Re-evalutation: There is an obvious abscess in the right axilla without significant cellulitis or any other concerning findings. This was drained, cleansed, dressed, patient started on Bactrim, discussed close primary care follow-up, discussed return precautions. Patient states understanding and agreement. - Vital Signs Vital signs: Temp Pulse Resp BP Pulse Ox 97.9 F 87 16 119/71 99 11/18/19 23:34 11/18/19 23:25 11/18/19 23:34 11/18/19 23:25 11/18/19 23:34 Procedures - Incision and Drainage Right axilla Type: Single Anesthetic type: 1% Lidocaine mL's of anesthetic: 7 I&D procedure: Shurclens applied, Sterile dressing applied Incision Method: Incision made by scalpel Amount/type of drainage: About 4 cc of purulent drainage Discharge - Discharge Clinical Impression: Abscess Condition: Stable Disposition: HOME, SELF-CARE Additional Instructions: The abscess has been drained. Keep clean, clean with soap and water, keep absorbing dressing over the area. Take antibiotics as prescribed. This should resolve with time. Follow-up with primary care for additional management. Return if you worsen including developing or spreading redness, severe worsening pain, fever, vomiting, or any other concerning symptoms. Prescriptions: Sulfamethoxazole/Trimethoprim [Bactrim Ds Tablet] 1 each PO BID #14 tablet Forms: Return to Work
[2019-11-19 03:21] VITALS: BP 112/72
== END 2019-11-19 03:31 | disposition home or self-care (01) ==
LOC: ER 23:03
DX: L02.411 Cutaneous abscess of right axilla (principal); E10.9 Type 1 diabetes mellitus without complications; F17.200 Nicotine dependence, unspecified, uncomplicated
CPT/HCPCS: 99283; 10060; A6266; J3490